=== PATIENT | male | born 1995 | race Caucasian/White ===

== ENCOUNTER 2024-02-03 12:58 | Emergency (ER) | payer OTHER, SELFPAY ==
[2024-02-03 13:02] VITALS: BP 125/80; PULSE 92; RESP 16; TEMP 36.6; O2SAT 98; BMI 22.6
--- NOTE | 2024-02-03 13:03 | XRR_ITS ---
PROCEDURE INFORMATION: Exam: XR Right Ankle Exam date and time: 02/03/2024 1:17 PM Age: 28 years old Clinical indication: Injury or trauma; Other: Twisted ankle; Sprain or strain; Right TECHNIQUE: Imaging protocol: Radiologic exam of the right ankle. Views: 3 or more views. COMPARISON: CR XR foot RT min 3V* [id number] 02/03/2024 1:16 PM FINDINGS: Bones/joints: Normal. Soft tissues: Normal. XR/XR ankle RT min 3V* [id number] IMPRESSION: No acute findings.
--- NOTE | 2024-02-03 13:10 | XRR_ITS ---
PROCEDURE INFORMATION: Exam: XR Right Foot Exam date and time: 02/03/2024 1:16 PM Age: 28 years old Clinical indication: Injury or trauma; Fall; Blunt trauma; Foot; Right TECHNIQUE: Imaging protocol: Radiologic exam of the right foot. Views: 3 or more views. COMPARISON: No relevant prior studies available. FINDINGS: Bones/joints: Normal. Soft tissues: Normal. XR/XR foot RT min 3V* [id number] IMPRESSION: No acute findings.
--- NOTE | 2024-02-03 13:11 | W.ED.LOWEXIN ---
HPI - Extremity Injury (Lower) General: Chief Complaint: Extremity Injury, Lower Stated Complaint: right ankle pain Time Seen by Provider: 02/03/24 13:06 Source: patient Mode of arrival: ambulatory Limitations: no limitations History of Present Illness: Patient is a 28-year-old male who presents to ED today for evaluation of a right foot injury that he sustained approximately a week ago. 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 He states he is continue to be ambulatory but tries to put most of his weight onto his left foot. Pain has persisted thus prompting his ED evaluation. complaint: foot injury Onset (ago): week(s) (about a week ago per patient) Injury: Right: foot Type of Injury: inversion Place: work Severity: moderate Relieving factors: immobilization Exacerbating factors: weight bearing, movement and palpation Context: other (twisted) Associated symptoms: Reports no associated symptoms Other symptoms: none Review of Systems Musc: Reports: extremity pain (R foot); Denies: extremity swelling, joint pain or joint swelling Skin/Breast: Reports: other (bruising to R foot) Neuro: Denies: numbness in extremities, weakness in extremities or sensory changes Physical Exam Const: COMMON NORMALS: no acute distress, average body habitus, patient oriented x3, no limitations, healthy appearing, alert and well nourished Extremity: COMMON NORMALS: full ROM, capillary refill normal and no calf tenderness GENERAL: Yes normal exam except as noted RIGHT LOWER EXTREMITY: Yes foot & digits (normal R ankle exam) and Yes foot & digits (ecchymosis R foot) Right foot and digits: Yes palpation (max tenderness to R lateral proximal foot) and Yes neurovascular exam (normal) Neuro: COMMON NORMALS: patient oriented x3, moves all extremities, no focal motor deficits and no sensory deficits noted SENSORIUM/ORIENTATION: Yes alert Course Vital Signs: Vital signs: Vital Signs Temperature 97.9 F 02/03/24 13:02 Pulse Rate 92 02/03/24 13:02 Respiratory Rate 16 02/03/24 13:02 Blood Pressure 125/80 02/03/24 13:02 Pulse Oximetry 98 02/03/24 13:02 Oxygen Delivery Me thod Room Air 02/03/24 13:02 MDM - Extremity Injury (Lower) Medical Decision Making Personal interpretation of patient's x-ray shows a small avulsion fracture off of his cuboid. He does have direct tenderness here so we will go ahead and splint and give crutches and have him follow-up with orthopedics/podiatry. 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 driving and cannot do so with the posterior splint; will place him in a darco shoe as this is all he will allow at this time XR interpretation done by ED provider, pending radiology final review Discharge Plan Discharge Patient Disposition: Home Clinical Impression: Fracture of cuboid Qualifiers: Encounter type: initial encounter Fracture type: closed Fracture alignment: nondisplaced Laterality: right Qualified Code(s): S92.214A - Nondisplaced fracture of cuboid bone of right foot, initial encounter for closed fracture Condition: Stable Discharge Orders: Discharge ED (Routine); Ordered 02/03/24 Ordered By: Shasta Hayes Patient Instructions: Foot Fracture in Adults (ED) Stand Alone Forms: Work/School Release Coding Level of Care Code ED Chief Cardiopulmonary Technologist for Marc Noguera
--- NOTE | 2024-02-03 13:49 | PC.NURSE ---
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 PT REPORTS HE HAS CRUTCHES AT HOME TO USE. REFUSED SPLINT WITH ORTHO GLASS. REFUSED CRUTCHES. RIGHT FOOT/ANKLE WRAPPED WITH ONE 3IN ELASTIC WRAP. [facility]IUM MENS POST OP SHOE SENT WITH.
--- NOTE | 2024-02-03 15:46 | DCPLANNER ---
Message sent to Podiatry for follow up
== END 2024-02-03 13:55 | disposition home or self-care (01) ==
PROVIDERS: Emergency Provider Physician Assistant
DX: S92.214A Nondisplaced fracture of cuboid bone of right foot, initial encounter for closed fracture (principal); X50.1XXA Overexertion from prolonged static or awkward postures, initial encounter; Y99.0 Civilian activity done for income or pay
CPT/HCPCS: 73610; 73630; 99283

== ENCOUNTER 2024-05-19 13:08 | Emergency (ER) | payer OTHER, SELFPAY ==
--- NOTE | 2024-05-19 13:09 | XRR_ITS ---
PROCEDURE INFORMATION: Exam: XR Left Ankle Exam date and time: 05/19/2024 1:38 PM Age: 28 years old Clinical indication: Injury or trauma; Other: Twisted foot and ankle; Sprain or strain; Left TECHNIQUE: Imaging protocol: Radiologic exam of the left ankle. Views: 3 or more views. COMPARISON: CR XR foot LT min 3V* [id number] 05/19/2024 1:37 PM FINDINGS: Bones/joints: Normal. Soft tissues: Normal. XR/XR ankle LT min 3V* [id number] IMPRESSION: No acute findings.
[2024-05-19 13:26] VITALS: BP 120/74; PULSE 88; RESP 16; TEMP 36.8; O2SAT 99; BMI 24.4
--- NOTE | 2024-05-19 13:30 | ED_ITS ---
HPI - Extremity Injury (Lower) General: Chief Complaint: Extremity Injury, Lower Stated Complaint: left ankle pain Time Seen by Provider: 05/19/24 13:10 Source: patient Mode of arrival: ambulatory Limitations: no limitations History of Present Illness: Patient is a 28-year-old male presents to ED today for evaluation of a left foot injury that he sustained approximately 4 days ago. He states he was working at [employer] when he accidentally slipped and fell on gravel getting out of his truck. He has been ambulatory on the foot since the injury. There are no other complaints at this time. complaint: foot injury Onset (ago): day(s) Injury: Left: foot Place: work Severity: mild Relieving factors: immobilization Exacerbating factors: weight bearing, movement and palpation Context: walking Associated symptoms: Reports no associated symptoms Other symptoms: none Related Data Allergies Allergy/AdvReac Type Severity Reaction Status Date / Time No Known Allergies Allergy Verified 05/17/24 17:30 Review of Systems Musc: Reports: extremity pain (L foot); Denies: neck pain, back pain, extremity swelling, joint pain or joint swelling Neuro: Denies: numbness in extremities, sensory changes or difficulty walking Physical Exam Const: COMMON NORMALS: no acute distress, average body habitus, patient oriented x3, no limitations, healthy appearing, alert and well nourished Extremity: COMMON NORMALS: full ROM, capillary refill normal, no joint enlargement, no clubbing, cyanosis or edema, no calf tenderness and no pedal edema GENERAL: Yes normal exam except as noted LEFT LOWER EXTREMITY: Yes ankle joint (no tenderness/full ROM) and Yes foot & digits (ecchymosis/tenderness proximal lateral L foot) Left foot and digits: Yes neurovascular exam (normal) Neuro: COMMON NORMALS: patient oriented x3, moves all extremities, no focal motor deficits, no sensory deficits noted and gait normal SENSORIUM/ORIENTATION: Yes alert Course Vital Signs: Vital signs: Vital Signs Temperature 98.2 F 05/19/24 13:26 Pulse Rate 88 05/19/24 13:26 Respiratory Rate 16 05/19/24 13:26 Blood Pressure 120/74 05/19/24 13:26 Pulse Oximetry 99 05/19/24 13:26 Oxygen Delivery Me thod Room Air 05/19/24 13:26 MDM - Extremity Injury (Lower) Medical Decision Making XR unremarkable. He declines crutches. Will Tomy wrap. Will have him follow-up with Worker's Comp. XR interpretation done by ED provider, pending radiology final review ED provider radiology interpretation(s): XR interpretation done by ED provider, pending radiology final review ED provider radiology interpretation(s): No acute fractures or abnormalities noted to left foot films Discharge Plan Discharge Patient Disposition: Home Clinical Impression: Sprain of foot, left Qualifiers: Encounter type: initial encounter Qualified Code(s): S93.602A - Unspecified sprain of left foot, initial encounter Condition: Stable Discharge Orders: Discharge ED (Routine); Ordered 05/19/24 Ordered By: Shasta Hayes Patient Instructions: Foot Sprain (ED) Activity Restrictions/Additional Instructions: As we discussed please follow-up with Worker's Comp. as directed by your human resource department/employer. Coding Level of Care Code ED Tractor Operator Battery for Marc Noguera
--- NOTE | 2024-05-19 13:31 | XRR_ITS ---
PROCEDURE INFORMATION: Exam: XR Left Foot Exam date and time: 05/19/2024 1:37 PM Age: 28 years old Clinical indication: Injury or trauma; Other: Twisted foot and ankle; Sprain or strain; Left TECHNIQUE: Imaging protocol: Radiologic exam of the left foot. Views: 3 or more views. COMPARISON: No relevant prior studies available. FINDINGS: Bones/joints: Normal. Soft tissues: Normal. XR/XR foot LT min 3V* [id number] IMPRESSION: No acute findings.
== END 2024-05-19 13:57 | disposition home or self-care (01) ==
PROVIDERS: Emergency Provider Physician Assistant
DX: S93.602A Unspecified sprain of left foot, initial encounter (principal); W01.0XXA Fall on same level from slipping, tripping and stumbling without subsequent striking against object, initial encounter; Y99.0 Civilian activity done for income or pay
CPT/HCPCS: 73610; 73630; 99283